=== PATIENT | female | born 2000 | race Caucasian/White ===

== ENCOUNTER 2019-01-01 16:16 | Emergency (ER) | payer BC ==
[2019-01-01 16:52] VITALS: BP 103/66
--- NOTE | 2019-01-01 18:04 | UC ---
Respiratory Complaint HPI - HPI Summary HPI Summary: 5 days of cold symptoms with fever that goes up in the evening harsh cough, sore throat and body aches---room mate hate similar symptoms---got flu vaccine 3 -4 weeks ago-- - History of Current Complaint Chief Complaint: UCRespiratory Stated Complaint: FEVER, AND COUGH Time Seen by Provider: 01/01/19 17:55 Hx Obtained From: Patient Hx Last Menstrual Period: 10/27/18 ?: No Onset/Duration: Sudden Onset, Lasting Days - 4-5, Still Present Timing: Constant Severity Initially: Mild Severity Currently: Moderate Pain Intensity: 4 Pain Scale Used: 0-10 Numeric Aggravating Factors: Nothing Alleviating Factors: OTC Meds Associated Signs And Symptoms: Positive: Fever, Chills, URI, Nasal Congestion - Allergies/Home Medications Allergies/Adverse Reactions: Allergies Allergy/AdvReac Type Severity Reaction Status Date / Time No Known Allergies Allergy Verified 01/01/19 16:52 Home Medications: Home Medications Acetaminophen [Tylenol Extra Strength] 1,000 mg PO Q6HR 01/01/19 [History Confirmed 01/01/19] Ibuprofen TAB* [Motrin TAB* 400 MG] 400 mg PO Q6HR 01/01/19 [History Confirmed 01/01/19] PMH/Surg Hx/FS Hx/Imm Hx Psychological History: Anxiety, Depression - Surgical History Surgical History: None - Family History Known Family History: Positive: None - Social History Occupation: Student Lives: Dormitory/Roommates Alcohol Use: Weekly Alcohol Amount: once Substance Use Type: Marijuana Substance Use Comment - Amount & Last Used: 2X weekly Smoking Status (MU): Light Every Day Tobacco Smoker Review of Systems All Other Systems Reviewed And Are Negative: Yes Constitutional: Positive: Fever, Chills, Fatigue Skin: Positive: Negative Eyes: Positive: Negative ENT: Positive: Sore Throat, Sinus Congestion Respiratory: Positive: Cough Cardiovascular: Positive: Negative Gastrointestinal: Positive: Negative Genitourinary: Positive: Negative Motor: Positive: Negative Neurovascular: Positive: Negative Musculoskeletal: Positive: Arthralgia, Myalgia Neurological: Positive: Negative Psychological: Positive: Negative Is Patient Immunocompromised?: No Physical Exam Triage Information Reviewed: Yes Appearance: No Pain Distress, Well-Nourished, Ill-Appearing - mild Vital Signs: Initial Vital Signs Temp 98.7 F 01/01/19 16:46 Pulse 97 01/01/19 16:46 Resp 16 01/01/19 16:46 BP 103/66 01/01/19 16:46 Pulse Ox 100 01/01/19 16:46 Vital Signs Reviewed: Yes Eye Exam: Normal Eyes: Positive: Conjunctiva Clear ENT Exam: Normal ENT: Positive: Normal ENT inspection, Hearing grossly normal, Pharyngeal erythema, Nasal congestion, Nasal drainage, TMs normal, Tonsillar swelling, Tonsillar exudate, Trismus, Muffled voice, Hoarse voice, Dental tenderness, Uvula midline. Negative: Sinus tenderness Dental Exam: Normal Neck exam: Normal Neck: Positive: Supple, Nontender, Enlarged Nodes @ - anterior cervical Respiratory Exam: Normal Respiratory: Positive: Chest non-tender, Lungs clear, Normal breath sounds, No respiratory distress, No accessory muscle use Cardiovascular Exam: Normal Cardiovascular: Positive: RRR, No Murmur, Pulses Normal, Brisk Capillary Refill Musculoskeletal Exam: Normal Musculoskeletal: Positive: Strength Intact, ROM Intact, No Edema Neurological Exam: Normal Neurological: Positive: Alert, Muscle Tone Normal Psychological Exam: Normal Skin Exam: Normal Diagnostics - Laboratory Lab Results: rst -, influenza a/b - Respiratory Course/Dx - Course Course Of Treatment: rest increase fluids, tylenol, ibuprofen for pain/fever follow at [facility] if needed - Differential Dx/Diagnosis Provider Diagnosis: Acute viral pharyngitis Discharge ED - Sign-Out/Discharge Documenting (check all that apply): Patient Departure All imaging exams completed and their final reports reviewed: No Studies - Discharge Plan Condition: Stable Disposition: HOME Patient Education Materials: Upper Respiratory Infection (ED), Viral Syndrome ( ED) Referrals: [facility] [Outside] - If Needed - Billing Disposition and Condition Condition: STABLE Disposition: Home
[2019-01-01] MEDS ORDERED: Ibuprofen TAB* 600 MG PO ONE (18:07)
[2019-01-01 18:32] LABS: Influenza A Molecular NEGATIVE (Negative); Influenza B Molecular NEGATIVE (Negative)
== END 2019-01-01 19:00 | disposition home or self-care (01) ==
LOC: UCEAST 16:16
DX: J02.9 Acute pharyngitis, unspecified (principal); F17.290 Nicotine dependence, other tobacco product, uncomplicated; M79.10 Myalgia, unspecified site; R53.83 Other fatigue
CPT/HCPCS: 87651; 99201; A9270-GY; G0463

== ENCOUNTER 2019-05-10 17:34 | Emergency (ER) | payer BC ==
[2019-05-10 17:50] VITALS: BP 138/83
--- NOTE | 2019-05-10 18:07 | UC ---
General HPI - HPI Summary HPI Summary: 4 days of cough, congestion and today lost her voice. No fever. Productive cough. No SOB. Good PO. Some nausea and gagging on mucus earlier today. Has tried over the counter remedies suggested by [facility] when she went there two days ago. Used a nebulizer as a child worried as she has a history of chronic strep throat Here with her bf. - History of Current Complaint Chief Complaint: UCGeneralIllness Stated Complaint: TROUBLE BREATHING, RESP. DISCHARGE Time Seen by Provider: 05/10/19 17:39 Hx Last Menstrual Period: 2 months ( normal for her) Pain Intensity: 6 - Allergy/Home Medications Allergies/Adverse Reactions: Allergies Allergy/AdvReac Type Severity Reaction Status Date / Time No Known Allergies Allergy Verified 05/10/19 17:50 Home Medications: Home Medications Albuterol HFA INHALER* [Ventolin HFA Inhaler*] 2 puff INH Q4H PRN #1 mdi [Rx] Bupropion XL* [Wellbutrin XL *] 150 mg PO DAILY 05/10/19 [History Confirmed 08/23] Dupilumab [Dupixent] 200 mg SQ SEE INSTRUCTIONS 05/10/19 [History Confirmed 08/23] Spacer/Holding Chamber (NF) [Easivent CHAMBER (NF)] 1 applic INH Q4HR PRN #1 device 05/10/19 [Rx] buPROPion SR TAB* [Wellbutrin SR TAB*] 100 mg PO DAILY WITH MEAL 05/10/19 [ History Confirmed 05/10/19] l-Norgest/E.estradiol-E.estrad [Ashlyna 0.15-0.03 &0.01 mg] 1 tab PO DAILY WITH MEAL 05/10/19 [History] PMH/Surg Hx/FS Hx/Imm Hx Previously Healthy: Yes - Surgical History Surgical History: None - Family History Known Family History: Positive: None - Social History Alcohol Use: Occasionally Alcohol Amount: once Substance Use Type: Marijuana Substance Use Comment - Amount & Last Used: 2X weekly Smoking Status (MU): Never Smoked Tobacco Review of Systems All Other Systems Reviewed And Are Negative: Yes ENT: Positive: Sore Throat, Nasal Discharge Respiratory: Positive: Cough Physical Exam Triage Information Reviewed: Yes Appearance: Well-Appearing Vital Signs: Initial Vital Signs Temp 98.1 F 05/10/19 17:43 Pulse 96 05/10/19 17:43 Resp 18 05/10/19 17:43 BP 138/83 05/10/19 17:43 Pulse Ox 100 05/10/19 17:43 Vital Signs Reviewed: Yes ENT: Positive: Pharyngeal erythema, Nasal drainage, Tonsillar swelling Neck: Positive: Supple, Nontender Respiratory: Positive: Lungs clear, Normal breath sounds Cardiovascular: Positive: RRR, No Murmur Course/Dx - Course Course Of Treatment: This is a 18 yr old with sore throat, cough and congestion Nontoxic appearing Rapid strep: Negative Plan Your strep test was: Negative Can try Albuterol inhaler 2 puffs every 4 hours as needed for cough, use with spacer Recommend continuing Mucinex D and Flonase Continue supportive care with rest, fluids and ibuprofen as needed for pain/ fever If symptoms persist or worsen recommend follow up with your PCP or return to urgent care - Diagnoses Provider Diagnosis: Viral syndrome Discharge ED - Sign-Out/Discharge Documenting (check all that apply): Patient Departure All imaging exams completed and their final reports reviewed: No Studies - Discharge Plan Condition: Good Disposition: HOME Prescriptions: Albuterol HFA INHALER* [Ventolin HFA Inhaler*] 2 puff INH Q4H PRN #1 mdi PRN Reason: Cough Spacer/Holding Chamber (NF) [Easivent CHAMBER (NF)] 1 applic INH Q4HR PRN #1 device PRN Reason: Cough Patient Education Materials: Viral Syndrome (ED) Referrals: No Primary Care Phys,NOPCP [Primary Care Provider] - [facility] - Jewel KAPLAN [[employer], [employer]PLICATION, OTHER] - Additional Instructions: Your strep test was: Negative Can try Albuterol inhaler 2 puffs every 4 hours as needed for cough, use with spacer Recommend continuing Mucinex D and Flonase Continue supportive care with rest, fluids and ibuprofen as needed for pain/ fever If symptoms persist or worsen recommend follow up with your PCP or return to urgent care - Billing Disposition and Condition Condition: GOOD Disposition: Home
== END 2019-05-10 18:27 | disposition home or self-care (01) ==
LOC: UCEAST 17:34
DX: B34.9 Viral infection, unspecified (principal)
CPT/HCPCS: 87651; 99212; G0463